=== PATIENT | male | born 1965 | race Caucasian/White ===

== ENCOUNTER 2020-03-05 13:56 | Emergency (ER) | payer MEDICARE ==
[2020-03-05] MEDS ORDERED: Sodium Chloride 0.9% 1000 ML 1,000 ML IV STA (14:20)
[2020-03-05] MEDS ORDERED: Sodium Chloride 0.9% 1000 ML 1,000 ML ONE (14:29)
[2020-03-05 14:43] LABS: Absolute Neutrophil Ct (ANC) 8.06 (1.4-6.9); BASOPHIL % 0.5 % (0.0-0.4); Basophil (Absolute #) 0.06 (0-0.4); Eosinophil % 3.3 % (0.00-5.0); Eosinophil (Absolute #) 0.39 (0-0.5); Hematocrit 48.2 % (42-50); Hemoglobin 15.8 gm/dl (12.5-18.0); Lymphocyte (Absolute #) 2.33 (1.0-4.6); Lymphocytes % 19.8 % (24.0-44.0); Mean Cell Volume 88.6 fl (78-100); Mean Corpuscular Hgb Concent. 32.8 g/dl (32-36); Mean Platelet Volume 10.3 fl (7.5-11.0); Monocyte (Absolute #) 0.93 (0.0-1.3); Monocytes % 7.9 % (0.0-12.0); Neutrophil % 68.5 % (36.0-66.0); Platelet Count 302 K/mm3 (150-450); Red Blood Count 5.44 M/mm3 (4.1-5.6); Red Cell Distribution Width 14.5 % (11.5-14.0); White Blood Count 11.8 K/mm3 (4.0-10.5)
[2020-03-05] MEDS ORDERED: Compazine 10 MG/2 ML IV ONE (14:52)
--- NOTE | 2020-03-05 14:52 | XRAY ---
Indication: Vertigo. Multiple contiguous axial images obtained through the head without contrast. Comparison: None Minimal bilateral posterior scalp soft tissue swelling/hematoma. Otherwise normal appearing brain parenchyma, ventricles, and bony calvarium. Minimal mucosal thickening of both and left maxillary ethmoid sinuses. Mastoid air cells are clear. Impression: Minimal bilateral posterior scalp soft tissue swelling/hematoma and minimal paranasal sinus disease. Remaining CT head without contrast exam is normal.
[2020-03-05] MEDS ORDERED: VALIUM 10 MG/2 ML SYRINGE IV ONE (14:53)
--- NOTE | 2020-03-05 14:53 | XRAY ---
Indication: Dizziness. Nausea and vomiting. Comparison: None Portable chest demonstrates normal heart and lungs with incidental tiny calcified granulomas. Bony thorax intact with mild degenerative changes and old right clavicle fracture.
[2020-03-05] MEDS ORDERED: Zofran 4 MG/2 ML VIAL IV ONE (14:54)
[2020-03-05 14:56] LABS: ALKALINE PHOSPHATASE 159 U/L (38-126); AMYLASE 57 U/L (30-110); BLOOD UREA NITROGEN 11 mg/dL (9-20); CHLORIDE 108 mmol/L (98-107); Calcium 9.3 mg/dL (8.4-10.2); Carbon Dioxide 23 mmol/L (22-30); Creatinine 1 0.96 mg/dL (0.66-1.25); Glucose 167 mg/dL (74-106); Potassium 3.7 mmol/L (3.5-5.1); SGOT/AST 19 U/L (17-59); SGPT/ALT 13 U/L (0-50); SODIUM 140 mmol/L (137-145); Total Protein 7.3 g/dL (6.3-8.2)
[2020-03-05] MEDS ORDERED: VALIUM 10 MG/2 ML SYRINGE ONE (15:44)
[2020-03-05] MEDS ORDERED: Zofran 4 MG/2 ML VIAL ONE (15:44)
[2020-03-05] MEDS ORDERED: Compazine 10 MG/2 ML ONE (15:45)
--- NOTE | 2020-03-05 16:35 | ERPHSYRPT ---
- History of Present Illness Time Seen by Provider: 03/05/20 14:20 Source: patient, family Exam Limitations: no limitations Patient Subjective Stated Complaint: Dizziness Triage Nursing Assessment: Patient brought into ED via EMS and transferred to bed with assist of 3. Patient's skin pink, cool and diaphorectic. Patient complains of dizziness. Patient states he was standing up to do dishes and became nauseated, dizzy and diaphorectic. Patient's lungs clear a/p girish. No edema noted. Patient denies pain or discomfort. Physician History: Patient is a 54-year-old male who was doing dishes when he had the sudden onset of dizziness had trouble walking became clammy became nauseated and had dry heaves. His says that he soaked his shirt. He denies any spinning. Also denies headache chest pain palpitations weight loss weight gain etc. Timing/Duration: today Severity: severe Deficits: off balance, decrease ability to walk Baseline/Normal Cognition: alert 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 Current Cognition: alert 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 Baseline Gait: walks w/o assistance Associated Symptoms: nausea, vomiting, other (Vertigo and dizziness) Allergies/Adverse Reactions: No Known Drug Allergies Allergy (Unverified 03/05/20 14:08) Home Medications: Lisinopril 10 mg [Zestril 10 MG] 1 tab PO DAILY 03/05/20 [History] Hx Influenza Vaccination/Date Given: No Hx Pneumococcal Vaccination/Date Given: No Immunizations Up to Date: Yes Travel Risk - International Travel Have you traveled outside of the country in past 3 weeks: No - Coronavirus Screening Close contact with a COVID-19 positive Pt in past 14-21 Days: No - Review of Systems Constitutional: Other (Marked diaphoresis), No Fever, No Chills Eyes: Vision Changes (Vertigo) Ears, Nose, & Throat: No Symptoms Respiratory: No Cough, No Dyspnea Cardiac: No Chest Pain, No Edema, No Syncope Abdominal/Gastrointestinal: Nausea, Vomiting, No Abdominal Pain, No Diarrhea Genitourinary Symptoms: No Dysuria Musculoskeletal: No Back Pain, No Neck Pain Skin: No Rash Neurological: Dizziness, Vertigo, No Focal Weakness, No Sensory Changes Psychological: No Symptoms Endocrine: No Symptoms All Other Systems: Reviewed and Negative - Past Medical History Pertinent Past Medical History: Yes Neurological History: No Pertinent History ENT History: No Pertinent History Cardiac History: Hypertension Respiratory History: No Pertinent History Endocrine Medical History: No Pertinent History Musculoskeletal History: No Pertinent History GI Medical History: No Pertinent History History: No Pertinent History Psycho-Social History: No Pertinent History Male Reproductive Disorders: No Pertinent History Other Medical History: Psoriasis - Past Surgical History Past Surgical History: No Neuro Surgical History: No Pertinent History Cardiac: No Pertinent History Respiratory: No Pertinent History Gastrointestinal: No Pertinent History Genitourinary: No Pertinent History Musculoskeletal: No Pertinent History Male Surgical History: No Pertinent History - Social History Smoking Status: Current every day smoker How long have you smoked: years Exposure to second hand smoke: No Drug Use: none Patient Lives Alone: No - Nursing Vital Signs Nursing Vital Signs: Initial Vital Signs Temperature 97.6 F 03/05/20 14:09 Pulse Rate 58 L 03/05/20 14:09 Respiratory Rate 16 03/05/20 14:09 Blood Pressure 149/58 03/05/20 14:09 O2 Sat by Pulse Oximetry 97 03/05/20 14:09 Pain Scale Pain Intensity 0 - Pam Coma Scale Best Eye Response (Pam): (4) open spontaneously Best Verbal Response (Pam): (5) oriented Best Motor Response (Pam): (6) obeys commands [place] Total: 15 - Physical Exam General Appearance: mild distress Eye Exam: bilateral eye: PERRL, abnormal EOM (Nystagmus), other (Nystagmus bilaterally horizontal with movement) Ears, Nose, Throat Exam: normal ENT inspection, moist mucous membranes Neck Exam: normal inspection, non-tender, supple Respiratory: normal breath sounds, lungs clear, airway intact, No respiratory distress Cardiovascular: regular rate/rhythm, No edema Gastrointestinal: soft, No tenderness, No distention Back Exam: normal inspection Extremity Exam: normal inspection, No pedal edema Peripheral Pulses: carotid (R): 2+, carotid (L): 2+ Mental Status: alert, 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, 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 Exam: abnormal eye position (Bilateral nystagmus with change in position) Coordination/Gait: normal finger to nose Motor/Sensory: no motor deficit, no sensory deficit Skin Exam: normal color, warm, dry SpO2: 96 O2 Delivery: Room Air - Course Nursing assessment & vital signs reviewed: Yes EKG Interpreted by Me: RATE ([id number]), NORMAL AXIS, NORMAL INTERVALS, NORMAL QRS, Non-specific ST Changes - Radiology Exams Chest X-ray Interpretation: Interpreted by me, Negative - CT Exams Head CT Interpretation: Negative Ordered Tests: Active Orders 24 hr Category Date Time Status Land Appraiser STAT Care 03/05/20 14:18 Active EKG-ER Only STAT Care 03/05/20 14:20 Active NPO (ED) STAT Care 03/05/20 14:17 Active CHEST 1 VIEW (PORTABLE) Stat Exams 03/05/20 14:21 Completed HEAD WITHOUT CONTRAST [CT] Stat Exams 03/05/20 14:17 Completed AMYLASE Stat Lab 03/05/20 14:27 Completed CBC W DIFF Stat Lab 03/05/20 14:27 Completed CMP Stat Lab 03/05/20 14:27 Completed MAGNESIUM Stat Lab 03/05/20 14:27 Completed TROPONIN Q3H Lab 03/05/20 14:27 Completed TROPONIN Q3H Lab 03/05/20 17:30 Ordered TROPONIN Q3H Lab 03/05/20 20:30 Ordered TROPONIN Q3H Lab 03/05/20 23:30 Ordered TROPONIN Q3H Lab 03/06/20 02:30 Ordered UA W/RFX UR CULTURE Stat Lab 03/05/20 14:17 Uncollected Medication Summary Discontinued Medications Generic Name Dose Route Start Last Admin Trade Name Freq PRN Reason Stop Dose Admin Diazepam 2.5 mg 03/05/20 14:53 03/05/20 15:51 Valium 10 Mg/2 Ml Syringe IV 03/05/20 14:54 2.5 mg STAT ONE Administration Diazepam Confirm 03/05/20 15:44 Valium 10 Mg/2 Ml Syringe Administered 03/05/20 15:45 Dose 10 mg .ROUTE .STK-MED ONE Sodium Chloride 1,000 mls @ 999 mls/hr 03/05/20 14:20 03/05/20 16:09 Sodium Chloride 0.9% 1000 Ml IV 03/05/20 15:20 Infused .Q1H1M STA Infusion Sodium Chloride Confirm 03/05/20 14:29 Sodium Chloride 0.9% 1000 Ml Administered 03/05/20 14:30 Dose 1,000 mls @ ud .ROUTE .STK-MED ONE Ondansetron HCl 4 mg 03/05/20 14:54 03/05/20 15:52 Zofran 4 Mg/2 Ml Vial IV 03/05/20 14:55 4 mg STAT ONE Administration Ondansetron HCl Confirm 03/05/20 15:44 Zofran 4 Mg/2 Ml Vial Administered 03/05/20 15:45 Dose 4 mg .ROUTE .STK-MED ONE Prochlorperazine Edisylate 10 mg 03/05/20 14:52 03/05/20 15:51 Compazine 10 Mg/2 Ml IV 03/05/20 14:53 10 mg STAT ONE Administration Prochlorperazine Edisylate Confirm 03/05/20 15:45 Compazine 10 Mg/2 Ml Administered 03/05/20 15:46 Dose 10 mg .ROUTE .[facility] ONE Lab/Rad Data: Laboratory Result Diagrams 03/05/20 14:27 03/05/20 14:27 Laboratory Results 03/05/20 03/05/20 03/05/20 Range/Units 14:27 14:27 14:27 WBC 11.8 H (4.0-10.5) K/mm3 RBC 5.44 (4.1-5.6) M/mm3 Hgb 15.8 (12.5-18.0) gm/dl Hct 48.2 (42-50) % MCV 88.6 (78-100) fl MCH 29.0 (26-32) pg MCHC 32.8 (32-36) g/dl RDW 14.5 H (11.5-14.0) % Plt Count 302 (150-450) K/mm3 MPV 10.3 (7.5-11.0) fl Gran % 68.5 H (36.0-66.0) % Eos # (Auto) 0.39 (0-0.5) Absolute Lymphs (auto) 2.33 (1.0-4.6) Absolute Monos (auto) 0.93 (0.0-1.3) Lymphocytes % 19.8 L (24.0-44.0) % Monocytes % 7.9 (0.0-12.0) % Eosinophils % 3.3 (0.00-5.0) % Basophils % 0.5 (0.0-0.4) % Absolute Granulocytes 8.06 H (1.4-6.9) Basophils # 0.06 (0-0.4) Sodium 140 (137-145) mmol/L Potassium 3.7 (3.5-5.1) mmol/L Chloride 108 H (98-107) mmol/L Carbon Dioxide 23 (22-30) mmol/L Anion Gap 12.0 (5-15) MEQ/L BUN 11 (9-20) mg/dL Creatinine 0.96 (0.66-1.25) mg/dL Estimated GFR > 60.0 ML/MIN Glucose 167 H (74-106) mg/dL Calcium 9.3 (8.4-10.2) mg/dL Magnesium 2.0 (1.6-2.3) mg/dL Total Bilirubin 0.50 (0.2-1.3) mg/dL AST 19 (17-59) U/L ALT 13 (0-50) U/L Alkaline Phosphatase 159 H (38-126) U/L Troponin I < 0.012 (0.000-0.034) ng/mL Serum Total Protein 7.3 (6.3-8.2) g/dL Albumin 4.0 (3.5-5.0) g/dL Amylase 57 (30-110) U/L - Progress Progress: unchanged - Departure Departure Disposition: Home Clinical Impression: Labyrinthitis Condition: Stable Critical Care Time: No Referrals: DOCTOR,NO FAMILY [Primary Care Provider] - Instructions: Vertigo (a Type of Dizziness) (DC) Prescriptions: Meclizine HCl 25 mg [Antivert 25 mg] 25 mg PO Q8H 10 Days #30 tablet Cephalexin Mh 500 mg [Keflex 500 mg] 500 mg PO TID #21 capsule Diazepam 5 mg [Valium 5 MG] 2 mg PO TID #10 tablet Ondansetron HCl [Zofran] 4 mg PO TID PRN #10 tablet PRN Reason: Nausea/Vomiting
[2020-03-05 16:54] VITALS: BP 158/62; PULSE 70; O2SAT 99
[2020-03-05 17:36] LABS: Appearance SLIGHTLY CLOUDY (CLEAR); Bilirubin NEGATIVE (NEGATIVE); Blood NEGATIVE Ery/ul (0-5); Glucose NEGATIVE (NEGATIVE); Ketones NEGATIVE (NEGATIVE); Leukocyte Esterase NEGATIVE (NEGATIVE); Mucus SLIGHT /HPF (NEGATIVE); Nitrite NEGATIVE (NEGATIVE); Protein,Urine Dip 30 (Negative); Urobilinogen NEGATIVE mg/dL (0-1)
== END 2020-03-05 17:08 | disposition home or self-care (01) ==
LOC: ED 13:56
DX: H83.09 Labyrinthitis, unspecified ear (principal); Z79.899 Other long term (current) drug therapy
CPT/HCPCS: 36000; 36415; 70450; 71045; 80053; 81001; 82150; 83735; 84484; 85025; 87077; 87086; 87186; 93005; 93041; 96360; 96374; 96375; 99285; J2405; J3360

== ENCOUNTER 2021-01-03 16:54 | Emergency (ER) | payer MEDICARE ==
[2021-01-03] MEDS ORDERED: Sodium Chloride 0.9% 1000 ML 1,000 ML ONE (17:11)
[2021-01-03 17:13] LABS: Absolute Neutrophil Ct (ANC) 7.01 (1.4-6.9); BASOPHIL % 0.5 % (0.0-0.4); Basophil (Absolute #) 0.06 (0-0.4); Eosinophil (Absolute #) 0.35 (0-0.5); Hematocrit 46.3 % (42-50); Hemoglobin 15.1 gm/dl (12.5-18.0); INR 1.07 (0.8-3.0); Lymphocyte (Absolute #) 2.61 (1.0-4.6); Lymphocytes % 22.6 % (24.0-44.0); Mean Cell Volume 94.3 fl (78-100); Mean Corpuscular Hemoglobin 30.8 pg (26-32); Mean Corpuscular Hgb Concent. 32.6 g/dl (32-36); Mean Platelet Volume 9.7 fl (7.5-11.0); Neutrophil % 60.9 % (36.0-66.0); PROTIME 12.1 SECONDS (8.83-12.87); Platelet Count 333 K/mm3 (150-450); Red Blood Count 4.91 M/mm3 (4.1-5.6); Red Cell Distribution Width 14.8 % (11.5-14.0); White Blood Count 11.5 K/mm3 (4.0-10.5)
[2021-01-03] MEDS ORDERED: Sodium Chloride 0.9% 1000 ML 1,000 ML IV SCH (17:15)
[2021-01-03 17:16] LABS: PTT 34.3 SECONDS (24.1-36.1)
[2021-01-03 17:19] LABS: ALBUMIN 4.4 g/dL (3.5-5.0); ALKALINE PHOSPHATASE 99 U/L (38-126); ANION GAP 11.2 MEQ/L (5-15); BLOOD UREA NITROGEN 21 mg/dL (9-20); CHLORIDE 104 mmol/L (98-107); Calcium 9.7 mg/dL (8.4-10.2); Carbon Dioxide 29 mmol/L (22-30); Creatinine 1 1.21 mg/dL (0.66-1.25); EST GLOMERULAR FILTRATION RATE > 60.0 ML/MIN; Glucose 121 mg/dL (74-106); Potassium 4.1 mmol/L (3.5-5.1); SGOT/AST 21 U/L (17-59); SGPT/ALT 26 U/L (0-50); SODIUM 140 mmol/L (137-145); Total Protein 7.4 g/dL (6.3-8.2)
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
[2021-01-03] MEDS ORDERED: BABY ASPIRIN 81 MG CHEW PO ONE (18:28)
[2021-01-03] MEDS ORDERED: BABY ASPIRIN 81 MG CHEW ONE (18:31)
[2021-01-03 20:08] VITALS: BP 167/68; PULSE 82
[2021-01-03 21:18] VITALS: O2SAT 98
--- NOTE | 2021-01-04 07:17 | XRAY ---
Indication: Right-sided numbness. Multiple contiguous axial images obtained through the head without contrast. Comparison: March 05, 2020. Age-appropriate global atrophy. Left frontal parietal white matter demonstrates 2 new subcentimeter hypoattenuations favoring ischemia of uncertain chronicity. No acute intracranial hemorrhage, abnormal extra-axial fluid collection, or mass effect. Fourth ventricle is midline without hydrocephalus. George-white matter differentiation preserved. Bony calvarium intact. Visualized paranasal sinuses and mastoid air cells are clear. Impression: Left frontal parietal subcentimeter hypoattenuations, probable ischemia of uncertain chronicity. MRI may yield further information if clinically warranted. No acute intracranial hemorrhage. Comment: Preliminary interpretation was made by [facility]. No critical discrepancy.
--- NOTE | 2021-01-04 07:19 | XRAY ---
Indication: Right-sided numbness. Comparison: March 05, 2020. Portable chest again demonstrates a few tiny calcified granulomas. No focal infiltrate, consolidation, or large effusion. Heart not enlarged. Bony thorax intact again with degenerative changes and old right clavicle fracture. Impression: Continued nonacute chest with chronic features.
== END 2021-01-03 21:08 | disposition short-term general hospital (02) ==
LOC: ED 16:54
DX: G45.9 Transient cerebral ischemic attack, unspecified (principal)
CPT/HCPCS: 36000; 36415; 70450; 71045; 80053; 82947; 84484; 85025; 85610; 85730; 93005; 93041; 99285; 99291; A9270-GY

== ENCOUNTER 2021-10-23 09:38 | Emergency (ER) | payer MEDICARE ==
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
[2021-10-23] MEDS ORDERED: Pepcid 20 MG PO ONE (10:04)
[2021-10-23] MEDS ORDERED: solu-MEDROL 125 MG, Sterile H2O 10 ml 2 ML IM ONE ×2 (10:04)
[2021-10-23] MEDS ORDERED: Sterile H2O 10 ml IJ ONE (10:14)
[2021-10-23] MEDS ORDERED: solu-MEDROL ONE (10:14)
[2021-10-23] MEDS ORDERED: Pepcid 20 MG ONE (10:14)
[2021-10-23 11:33] VITALS: BP 193/88; PULSE 68; O2SAT 96
== END 2021-10-23 11:37 | disposition home or self-care (01) ==
LOC: ED 09:38
DX: L25.9 Unspecified contact dermatitis, unspecified cause (principal); L85.3 Xerosis cutis; L40.9 Psoriasis, unspecified; E78.5 Hyperlipidemia, unspecified; I10 Essential (primary) hypertension; Z72.0 Tobacco use; Z79.01 Long term (current) use of anticoagulants; Z79.52 Long term (current) use of systemic steroids; Z79.899 Other long term (current) drug therapy
CPT/HCPCS: 96372; 99283; J2930; A9270-GY

== ENCOUNTER 2021-11-06 17:34 | Emergency (ER) | payer MEDICARE ==
[2021-11-06] MEDS ORDERED: XYLOCAINE 1% HCL 20 ML MDV IJ ONE (17:35)
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
[2021-11-06 18:45] VITALS: PULSE 96
[2021-11-06 18:53] LABS: INFLUENZA A NEGATIVE (NEGATIVE); INFLUENZA B NEGATIVE (NEGATIVE); RESPIRATORY SYNCTIAL VIRUS NEGATIVE (Negative); SARS-CoV-2 Xpert Express NEGATIVE (NEGATIVE)
[2021-11-06] MEDS ORDERED: solu-MEDROL ONE (18:53)
[2021-11-06] MEDS ORDERED: Sterile H2O 10 ml IJ ONE (18:53)
[2021-11-06] MEDS ORDERED: HYDROCODONE-ACETAMIN 2.5-108/5 ML SOLUTION ONE (18:53)
[2021-11-06] MEDS ORDERED: Zithromax 250 MG TABLET ONE (18:53)
[2021-11-06] MEDS ORDERED: Rocephin 1000 MG INJ ONE (18:53)
[2021-11-06] MEDS: HYDROCODONE-ACETAMIN 2.5-108/5 ML SOLUTION PO STA (18:57)
[2021-11-06] MEDS: Rocephin 1000 MG INJ IM ONE (18:57)
[2021-11-06] MEDS: Zithromax 250 MG TABLET PO ONE (18:57)
[2021-11-06] MEDS: solu-MEDROL 125 MG, Sterile H2O 10 ml 2 ML IM ONE ×2 (18:57)
[2021-11-06 19:06] VITALS: BP 147/64; O2SAT 94
--- NOTE | 2021-11-07 08:39 | XRAY ---
Indication: Cough. Comparison: January 03, 2021. Portable chest less inflated with new moderate right mid-upper lung oval opacity, possible airspace disease in right clinical setting. A mass not completely excluded. Remaining heart and left lung unremarkable. Bony thorax intact again with osteopenia, degenerative changes, and old right clavicle fracture.
== END 2021-11-06 19:11 | disposition home or self-care (01) ==
LOC: ED 17:34
DX: J18.9 Pneumonia, unspecified organism (principal); Z72.0 Tobacco use; R05.1 Acute cough; R50.9 Fever, unspecified; E78.5 Hyperlipidemia, unspecified; I10 Essential (primary) hypertension; Z79.01 Long term (current) use of anticoagulants; Z79.899 Other long term (current) drug therapy; Z79.891 Long term (current) use of opiate analgesic; Z79.52 Long term (current) use of systemic steroids
CPT/HCPCS: 0241U; 71045; 87651; 96372; 99284; 36680; J0696; J2930; A9270-GY

== ENCOUNTER 2023-02-06 15:32 | Emergency (ER) | payer MEDICARE ==
[2023-02-06] MEDS ORDERED: LOTRIMIN CREAM 30 GM TP ONE (15:44)
[2023-02-06] MEDS ORDERED: Bactroban OINTMENT TP ONE (15:44)
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
[2023-02-06 16:08] VITALS: BP 148/73; PULSE 78; O2SAT 98
== END 2023-02-06 16:21 | disposition home or self-care (01) ==
LOC: ED 15:32
DX: L85.3 Xerosis cutis (principal); L25.8 Unspecified contact dermatitis due to other agents; E78.5 Hyperlipidemia, unspecified; I10 Essential (primary) hypertension; Z79.02 Long term (current) use of antithrombotics/antiplatelets; Z79.899 Other long term (current) drug therapy; Z72.0 Tobacco use
CPT/HCPCS: 99281; A9270-GY